=== PATIENT | male | born 1960 | race Caucasian/White ===

== ENCOUNTER → 2016-07-05 | Day surgery (SDC) | payer OTHER, MEDICARE ==
[~2016-07-05] VITALS: Ht 185.4 cm; Wt 83.9 kg
[~2016-07-05] MED LIST: LISINOPRIL-HCT1 EACH PO; PRAVACHOL40 M1 PO; TORADOL10 MG PO
--- NOTE | 2016-07-07 18:16 | Operative Report ---
Operative/Inv Procedure Report Surgery Date: 07/05/16 Name of Procedure: Laparoscopic preperitoneal mesh repair of left inguinal hernia Pre-Operative Diagnosis: Left inguinal hernia Post-Operative Diagnosis: same Estimated Blood Loss: scant Surgeon/Senior Corporate Accountant: MEE LOPEZ,MATHEW WILLIAMSON Anesthesia: general endotracheal tube Operative/Procedure Note Note: Patient was positioned supine on the table. After successful induction of general anesthesia the inguinal and surrounding areas were clipped prepped and draped in the usual sterile fashion. After injection of local anesthetic at the bottom of the umbilicus off the midline to the left, a 1 1/2 cm curved incision was made with a 15 blade, then deepened through Prieto's fascia, sweeping off the rectus sheath. A horizontal 1-1/2 cm incision was made between the fibers, elevating these edges with 0 Vicryl stay sutures. Then retracting the muscle laterally, clearing off the posterior rectus sheath, this space is developed down the midline to the pubis sequentially, with an S retractor, a peanut dissector, then the balloon-camera device, inflating it 30-40 pumps while watching how it opens up the space, keeping the epigastrics up. The balloon is then replaced with a 10 mm De La Cruz trocar, inserted, shortened, and secured with the stay sutures, gas turned on to 12 not 15 mm. Then two 5 mm trochars are inserted in the midline just below the camera, spaced by approximately 3 cm. Using mostly blunt dissection with peanuts to define the anatomy, first Jose's ligament is swept off medially, checking the medial spaces, direct and femoral. There were no hernias there. Then briefly skipping over the area of the iliac fat pad, we developed the iliopubic tract out laterally to the iliac crest. Then we returned to the area of the fat pad where the hernia sac and the cord structures are adherent, coursing up into an attenuated deep ring. The cord structures form a triangle with the vas approaching medially and the main vessels approaching laterally, with the apex at the deep ring. There was some preperitoneal fat up inside in front that was dragged down and out, helping identify the distal lip of the hernia sac, which is then carefully peeled off the cord structures, especially the vas. The cord is also from the underlying iliac fat. Once the hernia sac is from the cord structures down to the base of this "triangle," a Parietex sided mesh with the suture, is marked and stuffed down the camera trocar, then unfurled in a systematic fashion , first with the smaller leaflet passing behind the cord structures, until the flap covers the epigastrics, covering the deep ring, then the larger leaflet is released from the suture, double-covering the smaller one, but also extends laterally out to the iliac crest, medially over Jose's ligament, and superiorly towards the camera. There is a third part of the mesh, that covers the iliac fat pad like a skirt. The mesh was adjusted back and forth so that the keyhole is centered around the cord, lays flat and the edges are not curling. A trial run of letting the gas escape a little bit to see how the mesh would lay as the peritoneum comes back down is done, then when we're satisfied, we let rest of the gas escape, pulling out the instruments and trochars. The fascia is closed with a [id number] 0 Vicryl suture, tying the stay sutures on top. Then we closed the 3 skin incisions with interrupted 4-0 Monocryl, 3 for the umbilical, one each for the smaller ones, followed by Mastisol, Steri-Strips and Band-Aids. Overall estimated blood loss was minimal, lap and sponge counts were correct, wound expectancy was clean, IV fluids crystalloid, complications none, patient tolerated the procedure well, did not significantly choe during extubation and was returned to the recovery room in satisfactory condition.
== END ==
LOC: STS 07-01 07:00
DX: K40.90 Unilateral inguinal hernia, without obstruction or gangrene, not specified as recurrent (principal); I10 Essential (primary) hypertension; E78.5 Hyperlipidemia, unspecified
CPT/HCPCS: C1781; J0131; J0690; J2250